=== PATIENT | female | born 1975 | race Caucasian/White ===

== ENCOUNTER → 2017-03-29 | Outpatient (CLI) | payer BC | END | disposition home or self-care (01) | LOC: C.PAPS 18:07 | PROVIDERS: ATTEND Physician Assistant | DX: Z01.419 Encounter for gynecological examination (general) (routine) without abnormal findings (principal) ==

== ENCOUNTER → 2017-04-06 | Outpatient (CLI) | payer BC ==
--- NOTE | 2017-04-07 13:54 | MAMMOGRAPHY REPORT ---
BILATERAL DIGITAL SCREENING MAMMOGRAM TOMOSYNTHESIS WITH CAD: 04/06/2017 CLINICAL HISTORY: Routine screening. Patient has no complaints. TECHNIQUE: Breast tomosynthesis in addition to standard 2D mammography was performed. Current study was also evaluated with a Computer Aided Detection (CAD) system. COMPARISON: Comparison is made to exams dated: 03/04/2016 mammogram, 03/26/2015 mammogram, 03/17/2015 ma mmogram, and 03/03/2015 mammogram - [facility]. BREAST COMPOSITION: The tissue of both breasts is heterogeneously dense, which may obscure small mas ses. FINDINGS: There is newly visualized prominent 12 mm lymph node in the superior left breast, projecti ng over the pectoralis muscle on the MLO view, not identified on prior mammograms. Targeted ultrasou nd is recommended for further characterization and to assess morphology. There are stable post biopsy changes involving a benign circumscribed mass in the upper outer quadran t of the left breast, with stable associated ribbon-shaped biopsy marker clip. No other new suspicio us mass, focal area of architectural distortion, asymmetry or suspicious calcifications are seen bila terally. IMPRESSION: ACR BI-RADS CATEGORY 0: INCOMPLETE EVALUATION: NEED ADDITIONAL IMAGING EVALUATION The newly visualized prominent 12 mm lymph node in the left axillary region needs additional evaluati on. The patient will be called to schedule an appointment. Approximately 10% of breast cancers are not detected with mammography. A negative mammographic report should not delay biopsy if a clinically suggestive mass is present. So Duque M.D. ay/:04/06/2017 15:18:40 Truck Crane Operator: Kaity Portillo RT(R)(Erasto)([place]), [facility] letter sent: Addl Imaging 0 BI-RADS Code: ACR BI-RADS Category 0: Incomplete Evaluation: Need Additional Imaging Evaluation
== END | disposition home or self-care (01) ==
LOC: C.MAMM 14:57
PROVIDERS: ATTEND Obstetrics & Gynecology
DX: Z12.31 Encounter for screening mammogram for malignant neoplasm of breast (principal)

== ENCOUNTER → 2017-04-13 | Outpatient (CLI) | payer BC ==
--- NOTE | 2017-04-13 15:47 | MAMMOGRAPHY REPORT ---
ULTRASOUND OF LEFT BREAST: 04/13/2017 CLINICAL HISTORY: 41-year-old woman call back from screening mammography for a newly visualized sligh tly prominent 12 mm lymph node projecting over the left pectoralis muscle on the MLO view. Patient h as a history of prior benign left breast biopsy in the 1:00 axis which yielded a fibroadenoma. COMPARISON: Comparison is made to exams dated: 04/06/2017 mammogram, 03/04/2016 mammogram, 03/26/2015 ul trasound biopsy, 03/26/2015 mammogram, 03/17/2015 ultrasound, and 03/17/2015 mammogram - [facility]. FINDINGS: Targeted ultrasound was performed in the axillary tail of the left breast. In the axillar y tail region, a 12 mm lymph node is identified. It maintains a prominent echogenic fatty hilum and has a uniform thin cortex measuring up to 2.6 mm. Although the morphology is normal, a short follow- up is recommended given that this lymph node is newly visualized mammographically. This could simply be due to including more lateral tissue mammographically, nevertheless follow-up is recommended. IMPRESSION: ACR-BI-RADS CATEGORY 3: PROBABLY BENIGN - FOLLOW-UP RECOMMENDED There is a morphologically normal lymph node with 2.6 mm cortex in the left axillary tail, thought to correlate with the newly visualized lymph node seen mammographically. Although this is probably jules ign, given the new visualization mammographically, a short interval follow-up left diagnostic tomosyn thesis mammogram and repeat targeted ultrasound is recommended to ensure stability in 6 months. These results and recommendations were discussed with the patient at the time of the exam. So Duque M.D. ay/:04/13/2017 14:51:06 School Curriculum Developer: Josie BRYAN)(M), [facility] letter sent: Follow Up Recommended 3 BI-RADS Code: ACR-BI-RADS Category 3: Probably Benign
== END | disposition home or self-care (01) ==
LOC: C.MAMM 13:56
PROVIDERS: ATTEND Obstetrics & Gynecology
DX: R92.8 Other abnormal and inconclusive findings on diagnostic imaging of breast (principal)

== ENCOUNTER → 2017-10-13 | Outpatient (CLI) | payer BC ==
--- NOTE | 2017-10-14 07:45 | MAMMOGRAPHY REPORT ---
UNILATERAL LEFT DIGITAL DIAGNOSTIC MAMMOGRAM TOMOSYNTHESIS WITH CAD AND TARGETED LEFT ULTRASOUND: 10/02 CLINICAL HISTORY: 6 Month Follow-up Left. TECHNIQUE: Breast tomosynthesis in addition to standard 2D mammography was performed. Current study was also evaluated with a Computer Aided Detection (CAD) system. Left CC and MLO 2D and tomosynthesi s images were obtained. COMPARISON: Comparison is made to exams dated: 04/13/2017 ultrasound, 04/06/2017 mammogram, 03/04/2016 mammogram, 03/26/2015 ultrasound biopsy, 03/26/2015 mammogram, and 03/17/2015 ultrasound - [facility]. BREAST COMPOSITION: The tissue of the left breast is heterogeneously dense, which may obscure small masses. FINDINGS: The previously seen lymph node in the axillary tail of the left breast is not evident on th e current MLO view. The lymph nodes that are visualized in the left axillary region are stable mammo graphically dating back to at least the 2014 exam and appear morphologically normal. There are no amaro spicious masses, calcifications, or areas of architectural distortion noted in the left breast. Ther e has been no significant interval change mammographically compared to prior exams. A mass with an a ssociated biopsy clip in the left upper outer quadrant is stable. Targeted ultrasound was performed of the left axillary tail to reevaluate the previously seen lymph n ode. In the left axillary tail region, again noted is a morphologically normal lymph node which nga ures 11 x 5 mm. This has a normal fatty hilum and the cortical thickness is 2 mm which is within nor mal limits. The lymph node is stable on ultrasound compared to the April 2017 exam and is consider ed benign. IMPRESSION: ACR BI-RADS CATEGORY 2: BENIGN, TARGETED ULTRASOUND ACR BI-RADS CATEGORY 2: BENIGN Morphologically normal lymph node in the left axillary tail is stable compared to the April 2017 ex am and is considered benign. There is no mammographic or targeted sonographic evidence of malignancy . Return to annual mammogram screening schedule is recommended, due April 2018. The patient has been verbally notified of the results. Approximately 10% of breast cancers are not detected with mammography. A negative mammographic report should not delay biopsy if a clinically suggestive mass is present. Tori Golden M.D. /:10/13/2017 09:49:22 Overhead Irrigator: Connie Voss RT(R)(M), [facility] letter sent: Normal /2 BI-RADS Code: ACR BI-RADS Category 2: Benign Ultrasound BI-RADS: ACR BI-RADS Category 2: Benign
== END | disposition home or self-care (01) ==
LOC: C.MAMM 09:21
PROVIDERS: ATTEND Obstetrics & Gynecology
DX: N63.21 Unspecified lump in the left breast, upper outer quadrant (principal)